=== PATIENT | male | born 1940 | race Caucasian/White ===

== ENCOUNTER 2024-05-19 08:00 | Outpatient (RCR) | payer BC, SELFPAY ==
[2024-04-17] VITALS (13 sets, daily range): BP systolic 110–135; BP diastolic 67–76; PULSE 67–72; RESP 16–18; TEMP 36–36.7; O2SAT 96–100
[2024-04-17 09:16] LABS: Basophils Percent Auto 1.8 % (0.0-3.0); Eosinophils Percent Auto 0.9 % (0.0-7.0); Hematocrit 22.1 % (37.0-53.0); Immature Granulocytes Pct Auto 0.9 %; Lymphocytes Percent Auto 57.1 % (20-44); Mean Corpuscular HGB Conc 31 gm/dL (32-36); Mean Corpuscular Hemoglobin 30 pg (26-34); Mean Corpuscular Volume 99 fL (80-100); Monocytes Percent Auto 5.4 % (0.0-11.0); Neutrophils Percent Auto 33.9 % (42.0-72.0); RDW Coefficient of Variation % 23.7 % (11.5-15.5); Red Blood Count 2.24 m/uL (4.30-5.90)
[2024-04-17 09:34] LABS: Hemoglobin* 6.8 gm/dL (13.5-17.5); Platelet Count* 9 K/uL (140-440); White Blood Count* 1.12 K/uL (4.50-11.00)
[2024-04-17 09:35] LABS: Slide Review Reflex No
[2024-05-02 09:50] VITALS: BP 104/65; PULSE 80; RESP 16; TEMP 37.1; O2SAT 98
[2024-05-02 10:07] VITALS: BP 122/71; PULSE 85; RESP 16; TEMP 36.9; O2SAT 94
[2024-05-02 10:40] VITALS: BP 109/68; PULSE 81; RESP 16; TEMP 36.6; O2SAT 98
[2024-05-02 11:23] VITALS: BP 110/70; PULSE 81; RESP 16; TEMP 37.3; O2SAT 99
[2024-05-02 11:55] VITALS: BP 116/73; PULSE 78; RESP 16; TEMP 36.8; O2SAT 98
[2024-05-02 13:10] VITALS: BP 115/63; PULSE 76; RESP 16; TEMP 36.8; O2SAT 99
[2024-05-09] VITALS (7 sets, daily range): BP systolic 102–110; BP diastolic 56–67; PULSE 69–84; RESP 16–18; TEMP 36.2–36.9; O2SAT 98–100
[2024-05-09 08:13] LABS: Basophils Percent Auto 3.9 % (0.0-3.0); Eosinophils Percent Auto 1.3 % (0.0-7.0); Hematocrit 20.9 % (37.0-53.0); Lymphocytes Percent Auto 72.4 % (20-44); Mean Corpuscular HGB Conc 31 gm/dL (32-36); Mean Corpuscular Hemoglobin 30 pg (26-34); Mean Corpuscular Volume 96 fL (80-100); Monocytes Percent Auto 3.9 % (0.0-11.0); Neutrophils Percent Auto 18.5 % (42.0-72.0); RDW Coefficient of Variation % 21.8 % (11.5-15.5); Red Blood Count 2.18 m/uL (4.30-5.90)
[2024-05-09 08:38] LABS: White Blood Count* 0.76 K/uL (4.50-11.00)
[2024-05-09 08:39] LABS: Hemoglobin* 6.5 gm/dL (13.5-17.5); Platelet Count* 22 K/uL (140-440); Slide Review Reflex Yes
[2024-05-09 08:41] LABS: Slide Review Acceptable Review (Acceptable)
--- NOTE | 2024-05-09 09:45 | ONC.NURNOTE ---
Pt here for 1 unit of PRBCs today. CBC drawn, results called and faxed to [facility], spoke to Makenna JONES. Confirmed only one unit of PRBC today. Pt verbalized understanding of plan of care.
--- NOTE | 2024-05-15 15:57 | ONC.NURNOTE ---
Pt having CBC drawn tomorrow 05/16/24 at [facility] with a [facility]. They will update us with results.
[2024-05-19] VITALS (8 sets, daily range): BP systolic 104–118; BP diastolic 60–76; PULSE 70–87; RESP 14–16; TEMP 36.1–37.2; O2SAT 97–100
== END 2024-10-14 23:59 | disposition home or self-care (01) ==
LOC: CCIC 08:00
PROVIDERS: Visit Provider Clinical Nurse Specialist
DX: C92.00 Acute myeloblastic leukemia, not having achieved remission (principal)
CPT/HCPCS: 36415; 36430; 85025; 86850; 86900; 86901; 86922; P9016; P9019